=== PATIENT | male | born 1990 | race Caucasian/White ===

== ENCOUNTER → 2016-11-14 | Day surgery (SDC) | payer BC, OTHER ==
[2016-10-21 14:08] VITALS: Ht 172.7 cm; Wt 109.5 kg
[~2016-11-14] VITALS: Ht 172.7 cm; Wt 109.5 kg
[~2016-11-14] MED LIST: ACETAMINOPHEN 325 MG TAB PO PRN; ATROPINE SULFATE 0.1 MG/ML 5ML SYR IV PRN; BIMA0.01 OPL; BRIM0.2S OPL; BSS FLUSH ONE; EDTA ONE; EpHEDrine SULFATE INJ 50 MG/ML AMP IV PRN; FENTANYL CITRATE INJ 50 MCG/1 ML 2 ML VIAL ONE; IBUP-1105 PO; LACTATED RINGER'S 1000ML 1,000 ML IV SCH; LIDOCAINE 3.5% OPH GEL PER APPLICATION CHARGE OPL SCH; LIDOCAINE 4% OP SOLN DROP CHARGE ONE; LIDOCAINE 4% OP SOLN DROP CHARGE OPL SCH; MIDAZOLAM HCL 1 MG/ML 2ML VIAL ONE; MOXIFLOXACIN OPH SOLN PER DROP CHARGE ONE; POVIDONE-IODINE OP SOLN 30 ML BTL ONE; PROPARACAINE 0.5% OP SOLN PER DROP CHARGE OPL SCH; [UNRECOGNIZED DRUG - OTHER] ONE
[2016-11-14] MEDS: MOXIFLOXACIN OPH SOLN PER DROP CHARGE OPL SCH ×3 (13:15→13:35)
--- NOTE | 2016-11-14 13:25 | History & Physical Bridge - SC ---
H&P Re-Evaluation Bridge Note: I have examined the patient, reviewed the History & Physical and in the interval since the performance of the History & Physical I have noted the following changes of clinical significance: No changes noted
--- NOTE | 2016-11-14 14:57 | Discharge Instructions-SurgCtr ---
Discharge Instructions Date of Service Nov 14, 2016. Visit Reason for Visit: Left Eye Cornea Calcerous Degeneration Discharge Discharge Diagnosis / Problem: calcific band keratopathy left eye Discharge Goals Goal(s): Improve function Activity Recommendations Activity Limitations: resume your previous activity Anesthesia . Post Anesthesia Instructions: If you have had General Anesthesia or IV Sedation: * Do not drive today. * Resume driving when surgeon permits. * Do not make important decisions or sign legal documents today. * Call surgeon for: 1. Temperature elevations greater than 101 degrees F. 2. Uncontrollable pain. 3. Excessive bleeding. 4. Persistent nausea and vomiting. 5. Medication intolerance (nausea, vomiting or rash). * For nausea and vomiting use only clear liquids such as: tea, soda, bouillon until nausea subsides, then gradually increase diet as tolerated. * If you have any concerns or questions, call your surgeon's office. If physician is unavailable and it is an emergency, call 911 or go to the nearest emergency room. . Instructions / Follow-Up Instructions / Follow-Up ACTIVITY RECOMMENDATIONS: * Light activities * You may walk outside, read, watch television. * Mild irritation and blurred vision are common for the first few days, redness around the white part of the eye is common. MEDICATIONS: Resume previous medications unless instructed otherwise by your surgeon. Eye drops (today and tomorrow): Gatifloxacin - one drop in operative eye 4 times a day Prednisolone 1% - one drop in operative eye 4 times a day Combigan - one drop in operative eye twice daily Lumigan - one drop in operative eye once daily SPECIAL CARE INSTRUCTIONS: * If any problems or concerns, please call Dr. Bruec's office at . FOLLOW UP VISIT: Follow-up with Dr. Bruce in the [place] office as scheduled. If not already scheduled, please call the office at . Diet Recommendations Home Diet: resume previous diet Procedures Procedures Performed: Left Eye Keratectomy With EDTA Chelation Pending Studies Studies pending at discharge: no Medical Emergencies . Who to Call and When: Medical Emergencies: If at any time you feel your situation is an emergency, please call 911 immediately. . Non-Emergent Contact Non-Emergency issues call your: Occ Ther . . "Provider Documentation" section prepared by Pj Bruce. .
[2016-11-14 14:58] VITALS: TEMP 36.9
--- NOTE | 2016-11-14 14:58 | [facility] Post Operative Brief Note ---
Immediate Operative Summary Operative Date Nov 14, 2016. Pre-Operative Diagnosis Left Eye Cornea Calcerous Degeneration Post-Operative Diagnosis Same Procedure(s) Performed Left Eye Keratectomy With EDTA Chelation Surgeon Dr. Bruce Human Resources Analyst Surgeon(s) None Estimated Blood Loss 0 Findings calcific band keratopathy left eye Fluids (cc crystalloids) see anesthesia record Specimens None Drains none Anesthesia local with sedation Complication(s) None Disposition Recovery Room / PACU
--- NOTE | 2016-11-14 15:07 | Anesthesia Progress Nt - [facility] ---
Anesthesia Post Op Note Date & Time Nov 14, 2016 at 15:07 Vital Signs Pain Intensity: 0 Vital Signs Past 12 Hours Date Time Temp Pulse Resp B/P (MAP) Pulse Ox O2 Delivery O2 Flow Rate FiO2 11/14/16 14:58 36.9 78 16 122/84 (97) 96 Room Air 11/14/16 13:07 36.9 75 16 124/86 (99) 96 Room Air Notes Mental Status: alert / awake / arousable, participated in evaluation Pt Amnestic to Procedure: Yes Nausea / Vomiting: adequately controlled Pain: adequately controlled Airway Patency, RR, SpO2: stable & adequate BP & HR: stable & adequate Hydration State: stable & adequate Anesthetic Complications: no major complications apparent
[2016-11-14 15:22] VITALS: BP 113/77; PULSE 73; O2SAT 97
--- NOTE | 2016-11-14 15:28 | OPERATIVE REPORT ---
DATE OF OPERATION: 11/14/2016 PREOPERATIVE DIAGNOSIS: Calcific band keratopathy, left eye. POSTOPERATIVE DIAGNOSIS: Same. PROCEDURE PERFORMED: Lamellar keratectomy with EDTA chelation of the left eye. COMPLICATIONS: None. ESTIMATED BLOOD LOSS: None. ANESTHESIA: Local with sedation. DESCRIPTION OF PROCEDURE: After informed consent was obtained in the holding area, the patient was wheeled back to the operating room where cardiac monitoring leads and oxygen by nasal cannula was administered by anesthesia. Gentle IV sedation was given, and the patient's left eye was prepped and draped in usual sterile fashion. A wire lid speculum was placed in the left eye and the operating microscope swung into position. Using 0.12 forceps and a 57 pilot station blade, the epithelium was removed from the center of the left cornea. This exposed the stromal band keratopathy. Cut Weck-Nena sponges soaked in the EDTA were then placed over the area of calcific band keratopathy of the patient's left cornea with the sponges being changed every 3-4 minutes. After approximately 25 minutes, the calcium had cleared. Copious amounts of BSS irrigation was carried out and a bandage contact lens was placed on the eye. The wire lid speculum was removed from the eye and the patient was taken to recovery. The patient tolerated the procedure well. I attest to the content of the Intraoperative Record and any orders documented therein. Any exception s are noted below.
== END | disposition home or self-care (01) ==
LOC: X.SURG 12:56
PROVIDERS: ATTEND Ophthalmology
DX: H18.422 Band keratopathy, left eye (principal); Z90.89 Acquired absence of other organs; F17.210 Nicotine dependence, cigarettes, uncomplicated; Z86.69 Personal history of other diseases of the nervous system and sense organs

== ENCOUNTER 2017-06-12 00:50 | Emergency (ER) | payer BC, OTHER ==
[~2017-06-12] VITALS: Ht 172.7 cm; Wt 70.2 kg
[~2017-06-12 00:50] MED LIST changes: -ACETAMINOPHEN 325 MG TAB PO PRN; -ATROPINE SULFATE 0.1 MG/ML 5ML SYR IV PRN; -BSS FLUSH ONE; -EDTA ONE; -EpHEDrine SULFATE INJ 50 MG/ML AMP IV PRN; -FENTANYL CITRATE INJ 50 MCG/1 ML 2 ML VIAL ONE; -LACTATED RINGER'S 1000ML 1,000 ML IV SCH; -LIDOCAINE 3.5% OPH GEL PER APPLICATION CHARGE OPL SCH; -LIDOCAINE 4% OP SOLN DROP CHARGE ONE; -LIDOCAINE 4% OP SOLN DROP CHARGE OPL SCH; -MIDAZOLAM HCL 1 MG/ML 2ML VIAL ONE; -MOXIFLOXACIN OPH SOLN PER DROP CHARGE ONE; -POVIDONE-IODINE OP SOLN 30 ML BTL ONE; -PROPARACAINE 0.5% OP SOLN PER DROP CHARGE OPL SCH; -[UNRECOGNIZED DRUG - OTHER] ONE
[2017-06-12 00:52] VITALS: TEMP 36.7; Ht 172.7 cm; Wt 70.2 kg
--- NOTE | 2017-06-12 01:23 | EMERGENCY ROOM VISIT NOTE ---
History Report prepared by Janeth: Flavio Elizabeth Under the Supervision of: Dr. Silver Cerrato M.D. First contact with patient: 00:58 Chief Complaint: MENTAL HEALTH EVALUATION Stated Complaint: SUICIDAL CRISIS RECOMENDED INPATIENT History of Present Illness The patient is a 26 year old male who presents to the Emergency Room with complaints of episodic general suicide gesture ROOFING APPLICATOR. Per nursing staff, the patient held a knife to his head in an effort to harm himself. The parents note that they were home at the time of this incident. The patient states that he has felt depressed for years with associated thoughts of self-harm. He denies any medications for depression. He reports auditory hallucinations at times. He denies any command by hallucinations. He states that paranoia and everything else in his life made him feel like he wanted to harm himself. He was thinking someone was conspiring to kill him. He denies any thoughts of harming others. He notes that he used methamphetamine last month. Per nursing staff, the patient has a history of methamphetamine use for three years. He reports smoking it. He denies any IVDA. He reports alcohol use over the weekend , though denies any alcohol use today. He is a current smoker. Per father, the patient takes a significant amount of Ibuprofen due to chronic eye pain. The patient reports a history or ulcers and heartburn. 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 Per father, the patients right eye was removed and he can barely see out of his left eye. The patient notes his eye sight is worsening. 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 He reports a history of heartburn and he has ulcers. He denies any leg swelling or abdominal pain. 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 Per mother, the patient has a history of OCD. Source of History: patient, parent Onset: ROOFING APPLICATOR Position: other (general) Quality: other (suicide gesture) Timing: other (episodic) Associated Symptoms: No abdominal pain Note: Notes SI, visual and auditory hallucinations, right index finger injury, and eye pain. Denies leg swelling. Review of Systems See HPI for pertinent positives & negatives. A total of 10 systems reviewed and were otherwise negative. Past Medical & Surgical Medical Problems: (1) calcium removal of left eye x 5 (2) Eye pain (3) Prosthetic eye globe (4) Retinal detachment (5) retinal folds at (6) Stomach ulcer (7) Visual impairment Surgical Problems: (1) H/O enucleation of right eyeball (2) History of cataract surgery (3) Hx of tonsillectomy Family History FHx: cancer Social History Smoking Status: Current Every Day Smoker (1/2 ppd) Smokeless Tobacco Use: No Alcohol Use: occasionally Drug Use: other (methamphetamine ) Marital Status: single Housing Status: lives with family Occupation Status: disabled Current/Historical Medications Scheduled Atropine Sulfate (Atropine Sulfate), 1 DROP OPL BID Bimatoprost (Lumigan), 1 DROPS OPL HS Brimonidine Tartrate-Timolol M (Combigan), 1 DROP OPL BID Prednisolone Acetate (Ophth) (Prednisolone Acetate), 1 DROP OPL QID Scheduled PRN Artificial Tear Solution (Artificial Tears), 1 DROPS OPL UD PRN for DRYNESS Sodium Chloride Hypertonic (Shauna 128), 1 DROP OPL UD PRN for DRYNESS Allergies Coded Allergies: Sulfa Antibiotics (Verified Allergy, Unknown, RASH, 06/12/17) Physical Exam Vital Signs Date Time Temp Pulse Resp B/P (MAP) Pulse Ox O2 Delivery O2 Flow Rate FiO2 06/12/17 03:35 78 18 124/83 98 Room Air 06/12/17 02:59 77 18 148/106 97 Room Air 06/12/17 00:52 36.7 89 16 147/107 96 Room Air Physical Exam GENERAL: Patient is sad-appearing and in no acute distress. EYES: Fake right eye, injected left eye. ENT: Mucous membranes moist, no nasal congestion. NECK: No masses appreciated, no meningismus, trachea is midline. RESPIRATORY: No dyspnea. Clear to auscultation and equal bilaterally. No wheeze , no rhonchi. CARDIOVASCULAR: Regular rate and rhythm. No murmurs, rubs, gallops appreciated. GASTROINTESTINAL: Abdomen soft, nontender, no peritonitis. Bowel sounds positive. No masses appreciated. BACK: No midline tenderness, no CVA tenderness EXTREMITIES: Normal motion all extremities, no cyanosis, no edema. Healing abrasion to right pointer finger. NEUROLOGIC: Alert and oriented, no acute motor or sensory deficits, no focal weakness, cranial nerves grossly intact. SKIN: No rash, no jaundice, no diaphoresis. PSYCH: Admits SI with plan. Admits depression. Admits hallucinations. Denies HI. Medical Decision & Procedures Laboratory Results 06/12/17 01:16 Red Blood Count 5.15, Mean Corpuscular Volume 92.2, Mean Corpuscular Hemoglobin 33.0, Mean Corpuscular Hemoglobin Concent 35.8, Mean Platelet Volume 11.6, Neutrophils (%) (Auto) 69.4, Lymphocytes (%) (Auto) 22.8, Monocytes (%) (Auto) 6.0, Eosinophils (%) (Auto) 0.9, Basophils (%) (Auto) 0.4, Neutrophils # (Auto) 9.16, Lymphocytes # (Auto) 3.00, Monocytes # (Auto) 0.79, Eosinophils # (Auto) 0.12, Basophils # (Auto) 0.05 06/12/17 01:16 Test 06/12/17 01:10 06/12/17 01:16 Urine Color YELLOW Urine Appearance CLEAR (CLEAR) Urine pH 6.0 (4.5-7.5) Urine Specific Grover 1.022 (1.000-1.030) Urine Protein NEG (NEG) Urine Glucose (UA) NEG (NEG) Urine Ketones NEG (NEG) Urine Occult Blood 1+ (NEG) Urine Nitrite NEG (NEG) Urine Bilirubin NEG (NEG) Urine Urobilinogen NEG (NEG) Urine Leukocyte Esterase NEG (NEG) Urine WBC (Auto) 0 /hpf (0-5) Urine RBC (Auto) 5-10 /hpf (0-4) Urine Hyaline Casts (Auto) 0 /lpf (0-5) Urine Epithelial Cells (Auto) 0-5 /lpf (0-5) Urine Bacteria (Auto) NEG (NEG) Urine Opiates Screen NEG (NEG) Urine Methadone, Qualitative NEG (NEG) Urine Barbiturates NEG (NEG) Urine Phencyclidine (PCP) Level NEG (NEG) Ur Amphetamine/Methamphetamine NEG (NEG) MDMA (Ecstasy) Screen NEG (NEG) Urine Benzodiazepines Screen NEG (NEG) Urine Cocaine Metabolite NEG (NEG) Urine Marijuana (THC) NEG (NEG) White Blood Count 13.18 K/uL (4.8-10.8) Red Blood Count 5.15 M/uL (4.7-6.1) Hemoglobin 17.0 g/dL (14.0-18.0) Hematocrit 47.5 % (42-52) Mean Corpuscular Volume 92.2 fL (80-100) Mean Corpuscular Hemoglobin 33.0 pg (25-34) Mean Corpuscular Hemoglobin Concent 35.8 g/dl (32-36) Platelet Count 256 K/uL (130-400) Mean Platelet Volume 11.6 fL (7.4-10.4) Neutrophils (%) (Auto) 69.4 % Lymphocytes (%) (Auto) 22.8 % Monocytes (%) (Auto) 6.0 % Eosinophils (%) (Auto) 0.9 % Basophils (%) (Auto) 0.4 % Neutrophils # (Auto) 9.16 K/uL (1.4-6.5) Lymphocytes # (Auto) 3.00 K/uL (1.2-3.4) Monocytes # (Auto) 0.79 K/uL (0.11-0.59) Eosinophils # (Auto) 0.12 K/uL (0-0.5) Basophils # (Auto) 0.05 K/uL (0-0.2) RDW Standard Deviation 42.7 fL (36.4-46.3) RDW Coefficient of Variation 12.7 % (11.5-14.5) Immature Granulocyte % (Auto) 0.5 % Immature Granulocyte # (Auto) 0.06 K/uL (0.00-0.02) Anion Gap 11.0 mmol/L (3-11) Est Creatinine Clear Calc Drug Dose 94.2 ml/min Estimated GFR () 100.5 Estimated GFR (Non- 86.7 BUN/Creatinine Ratio 7.8 (10-20) Calcium Level 9.3 mg/dl (8.5-10.1) Total Bilirubin 0.5 mg/dl (0.2-1) Aspartate Amino Transf (AST/SGOT) 14 U/L (15-37) Alanine Aminotransferase (ALT/SGPT) 24 U/L (12-78) Alkaline Phosphatase 114 U/L (45-117) Total Protein 8.1 gm/dl (6.4-8.2) Albumin 4.3 gm/dl (3.4-5.0) Globulin 3.8 gm/dl (2.5-4.0) Albumin/Globulin Ratio 1.1 (0.9-2) Thyroid Stimulating Hormone (TSH) 2.390 uIu/ml (0.300-4.500) Salicylates Level 3.5 mg/dl (2.8-20) Acetaminophen Level < 2 ug/ml (10-30) Ethyl Alcohol mg/dL < 3.0 mg/dl (0-3) Date/Time Source Procedure Growth Status 06/12/17 03:30 Nasal MRSA DNA Surveillance Screen - Final Specimen Negative for MRSA by DNA Probe Complete Laboratory results as reviewed by me. Medications Administered Medications (Trade) Dose Ordered Sig/Cecilia Route Start Time Stop Time Status Last Admin Dose Admin Potassium Chloride (Klor-Con Tab) 40 meq NOW STAT PO 06/12/17 02:15 06/12/17 02:16 DC 06/12/17 02:37 40 MEQ ED Course 0100: The patient was evaluated in room A7. A complete history and physical exam was performed. 0235: I reassessed the patient at this time. He is stable. 0245: Kyler Hopson is evaluating the patient. 0322: I spoke with CAREY Paige. She reports the patient states he was positive for MRSA for years ago, though he was never treated. The patient is awaiting mental health treatment. He is voluntary. Medical Decision Differential: Mood Disorder, Overdose, Infectious, Electrolyte Abnormality, Cardiac, Hepatic, Endocrine, Toxicologic, Neurologic, amongst other pathologies entertained. 26 yr old male arrives for evaluation of suicidal ideation following worsening depression. 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 Tonight he head a knife to his head before being stopped by parents. Brought to ED for further management. Medically clear and potassium replaced here in ED. He is in need of inpatient treatment and Elisha Hopson agrees. No beds here and was awaiting placement when signed out to Dr Quan. Medication Reconcilliation Current Medication List: was personally reviewed by me Blood Pressure Screening Patient's blood pressure: Elevated blood pressure Blood pressure disposition: Elevated BP felt to be situational Impression Primary Impression: Suicide gesture Additional Impressions: Depression Hallucinations Hypokalemia Scribe Attestation The scribe's documentation has been prepared under my direction and personally reviewed by me in its entirety. I confirm that the note above accurately reflects all work, treatment, procedures, and medical decision making performed by me. Departure Information Referrals No Doctor, Assigned (PCP) Patient Instructions [facility] Problem Qualifiers
[2017-06-12] MEDS ORDERED: PRED1SUS17 OPL (01:38)
[2017-06-12] MEDS ORDERED: [UNRECOGNIZED DRUG - CODE] OPL (01:38)
[2017-06-12] MEDS ORDERED: ARTISOL12 OPL (01:40)
[2017-06-12] MEDS ORDERED: SODI2SOL OPL (01:40)
[2017-06-12 01:47] LABS: BASO % 0.4 %; BASO ABS # 0.05 K/uL (0-0.2); EOS % 0.9 %; EOS ABS # 0.12 K/uL (0-0.5); HEMATOCRIT 47.5 % (42-52); IG# 0.06 K/uL (0.00-0.02); LYMPH % 22.8 %; MEAN CELL VOLUME 92.2 fL (80-100); MEAN CORPUSCULAR HGB CONC 35.8 g/dl (32-36); MEAN PLATELET VOLUME 11.6 fL (7.4-10.4); MONO ABS # 0.79 K/uL (0.11-0.59); NEUT % 69.4 %; NEUT ABS # 9.16 K/uL (1.4-6.5); PLATELET COUNT 256 K/uL (130-400); RED CELL DISTRIBUTION WIDTH CV 12.7 % (11.5-14.5); RED CELL DISTRIBUTION WIDTH SD 42.7 fL (36.4-46.3); WHITE BLOOD COUNT 13.18 K/uL (4.8-10.8)
[2017-06-12 02:09] LABS: ALBUMIN 4.3 gm/dl (3.4-5.0); CALCIUM 9.3 mg/dl (8.5-10.1); CREATININE 1.17 mg/dl (0.60-1.40)
[2017-06-12] MEDS ORDERED: POTASSIUM CHLORIDE 20 MEQ TABCR PO STA (02:15)
[2017-06-12 02:19] LABS: TOTAL PROTEIN 8.1 gm/dl (6.4-8.2)
[2017-06-12] MEDS ORDERED: NICOTINE 14 MG/24 HR TDSY TD STA (09:02)
[2017-06-12 13:56] VITALS: BP 140/91; PULSE 81; O2SAT 98
--- NOTE | 2017-06-12 15:18 | EMERGENCY ROOM VISIT NOTE ---
ED Visit Note First contact with patient: 07:14 I received this patient in signout at the change of shift from Dr. Cerrato, pending mental health bed search. The patient was accepted and [facility] for inpatient treatment. Secure transportation arrangements were made. The patient was transferred on a 201.
== END 2017-06-12 13:57 ==
LOC: C.EDB 00:52 → C.EDA 13:57
DX: R45.851 Suicidal ideations (principal); F32.9 Major depressive disorder, single episode, unspecified; R44.3 Hallucinations, unspecified; E87.6 Hypokalemia; H54.7 Unspecified visual loss; Z97.0 Presence of artificial eye; F17.200 Nicotine dependence, unspecified, uncomplicated; Z88.2 Allergy status to sulfonamides